=== PATIENT | male | born 1975 | race Caucasian/White ===

== ENCOUNTER 2017-06-07 09:49 | Day surgery (SDC) | payer MEDICAID ==
[~2017-06-07 09:49] MED LIST: Gatifloxacin 0.5% Ophth Soln 2.5 ML Bot EYELF SCH; Lactated Ringers 1,000 ML IV SCH; Sodium Chloride 0.9% 5 ML Syringe FLUSH PRN
[2017-06-07] MEDS ORDERED: Ciprofloxacin 0.3% Ophth Soln 2.5 ML Bottle EYELF ONE (10:08)
[2017-06-07] MEDS: Cyclopentolate 1% Opth Soln 2 ML Bottle EYELF SCH ×3 (10:17→10:37)
[2017-06-07] MEDS: Phenylephrine 10% Ophth Soln 5 ML Bot EYELF SCH ×3 (10:22→10:42)
[2017-06-07] MEDS ORDERED: Balanced Salt Solution Ophth Irrig 15 ML Bottle EYELF ONE (11:31)
[2017-06-07] MEDS ORDERED: Water For Irrigation,Sterile 1,500 ML Container IRR ONE (11:31)
[2017-06-07] MEDS ORDERED: Carbachol 0.01% Intraocular 1.5 ML Vial EYELF ONE (11:31)
[2017-06-07] MEDS ORDERED: Balanced Salt Solution Plus Ophth Irrig 500 ML Bottle IOCULAR ONE (11:31)
[2017-06-07] MEDS ORDERED: EPINEPHrine 1 MG/ML SDV ONE (11:32)
[2017-06-07] MEDS ORDERED: Lidocaine 2% with EPINEPHrine 1:100,000 20 ML MDV INJECT ONE (11:32)
[2017-06-07] MEDS ORDERED: Lidocaine 1% 10 ML MDV INFILT ONE (11:32)
[2017-06-07] MEDS ORDERED: Dexamethasone/Neomycin/Polymyxin B Ophth Oint 3.5 GM Tube EYELF ONE (11:32)
[2017-06-07] MEDS ORDERED: Hyaluronate Sodium 1% 0.85 ML Syringe IOCULAR ONE (11:33)
--- NOTE | 2017-06-08 08:14 | OR ---
DATE OF SURGERY: 06/07/2017 SURGEON: Pedro Calderon MD PREOPERATIVE DIAGNOSIS: Cataract, left eye. POSTOPERATIVE DIAGNOSIS: Cataract, left eye. OPERATION PERFORMED: Phacoemulsification with posterior chamber lens insertion, left eye. FINDINGS: The patient was taken to the operating room where appropriate anesthesia, sedation and monitoring were provided. A retrobulbar block was given on the left side. The eye was massaged and was found to be appropriately soft. The eye and eyelids were then prepped and draped in the usual sterile manner. A lid speculum was placed. A micro sharp blade was used to enter the anterior chamber inside the limbus inferior-temporally. Xylocaine was irrigated into the eye at this site. Healon was irrigated into the eye through this site. Then using a 2.85 mm corneal blade an entry was made into the anterior chamber just inside the limbus temporally. Healon was again irrigated into the eye. Then using a cystitome, the anterior capsulorrhexis was created. The lens nucleus was hydrodissected using a 27 gauge cannula and balanced salt solution. The phacoemulsification unit was introduced through the temporal site and the Jon spatula through the inferior temporal site. In so doing, the lens nucleus was phacoemulsified. The cortical fragments of the lens were removed using the irrigation aspiration unit. The posterior capsule was polished. Healon was irrigated into the eye. The posterior chamber lens was inserted and rotated into position inside the capsular bag. The Healon was irrigated out of the eye. Miostat was irrigated into the eye and the pupil rounded nicely. A single interrupted 10-0 Nylon suture was placed through the temporal corneal incision site. Balanced salt solution was irrigated into the eye. The wound was tested and found to be tight. Maxitrol ointment was placed into the patient's left eye. The eyelids were closed and an eye patch and costa shield were placed. The patient left the operating room in good condition. /[id number]/MODL
== END 2017-06-07 12:25 | disposition home or self-care (01) ==
LOC: KA.SDS 09:49
PROVIDERS: ATTEND Ophthalmology
DX: H26.9 Unspecified cataract (principal); Z91.048 Other nonmedicinal substance allergy status
CPT/HCPCS: 66984; A9270; J0171; J7120; V2632

== ENCOUNTER 2017-07-05 11:19 | Day surgery (SDC) | payer MEDICAID ==
[~2017-07-05 11:19] MED LIST changes: +Ciprofloxacin 0.3% Ophth Soln 2.5 ML Bottle EYERT SCH; -Gatifloxacin 0.5% Ophth Soln 2.5 ML Bot EYELF SCH
[2017-07-05] MEDS: Phenylephrine 10% Ophth Soln 5 ML Bot EYERT SCH ×3 (11:32→12:06)
[2017-07-05] MEDS ORDERED: Balanced Salt Solution Ophth Irrig 15 ML Bottle EYERT ONE (13:35)
[2017-07-05] MEDS ORDERED: Balanced Salt Solution Plus Ophth Irrig 500 ML Bottle IOCULAR ONE (13:35)
[2017-07-05] MEDS ORDERED: Water For Irrigation,Sterile 1,500 ML Container ONE (13:35)
[2017-07-05] MEDS ORDERED: Carbachol 0.01% Intraocular 1.5 ML Vial EYERT ONE (13:35)
[2017-07-05] MEDS ORDERED: EPINEPHrine 1 MG/ML SDV ONE (13:36)
[2017-07-05] MEDS ORDERED: Lidocaine 2% with EPINEPHrine 1:100,000 20 ML MDV INJECT ONE (13:39)
[2017-07-05] MEDS ORDERED: Dexamethasone/Neomycin/Polymyxin B Ophth Oint 3.5 GM Tube EYERT ONE (13:39)
[2017-07-05] MEDS ORDERED: Lidocaine 1% 10 ML MDV INFILT ONE (13:40)
[2017-07-05] MEDS ORDERED: Hyaluronate Sodium 1% 0.85 ML Syringe IOCULAR ONE ×2 (13:40→13:41)
[2017-07-05] MEDS ORDERED: Tetracaine HCl/PF 0.5% 4 ML Bottle EYEBOTH ONE (13:41)
--- NOTE | 2017-07-05 19:17 | OR ---
DATE OF SURGERY: 07/05/2017 SURGEON: Pedro Calderon MD PREOPERATIVE DIAGNOSIS: Combined cataract,right eye. POSTOPERATIVE DIAGNOSIS: Combined cataract,right eye. OPERATION PERFORMED: Phacoemulsification with posterior chamber lens insertion, right eye. HISTORY: This gentleman presents with a cataract of the right eye which is giving him more and more difficulty and all functions, whether distance or near. The eye is constantly blurred FINDINGS: The patient was taken to the operating room where appropriate anesthesia, sedation and monitoring were provided. A retrobulbar block was given on the right side. The eye was massaged and was found to be appropriately soft. The eye and eyelids were then prepped and draped in the usual sterile manner. A lid speculum was placed. A micro sharp blade was used to enter the anterior chamber inside the limbus superior-temporally. Xylocaine was irrigated into the eye at this site. Healon was irrigated into the eye through this site. Then, using a 2.85 mm corneal blade, an entry was made into the anterior chamber just inside the limbus temporally. Healon was again irrigated into the eye. Then using a cystitome, the anterior capsulorrhexis was created. The lens nucleus was hydrodissected using a 27 gauge cannula and balanced salt solution. The phacoemulsification unit was introduced through the temporal site and the Jon spatula through the superior temporal site. In so doing, the lens nucleus was phacoemulsified. The cortical fragments of the lens were removed using the irrigation aspiration unit. The posterior capsule was polished. Healon was irrigated into the eye. The posterior chamber lens was inserted and rotated into position inside the capsular bag. The Healon was irrigated out of the eye. Miostat was irrigated into the eye and the pupil rounded nicely. Two interrupted 10-0 nylon sutures were placed through the temporal corneal incision site. Balanced salt solution was irrigated into the eye. The wound was tested and found to be tight. Maxitrol ointment was placed into the patient's right eye. The eyelids were closed and an eye patch and costa shield were placed. The patient left the operating room in good condition. /[id number]/MODL
== END 2017-07-05 14:05 | disposition home or self-care (01) ==
LOC: KA.SDS 11:19
PROVIDERS: ATTEND Ophthalmology
DX: H25.811 Combined forms of age-related cataract, right eye (principal); Z79.899 Other long term (current) drug therapy; J30.1 Allergic rhinitis due to pollen
CPT/HCPCS: 66984; A9270; J0171; J7120; C1780